=== PATIENT | female | born 1985 | race American Indian/Alaskan Native ===

== ENCOUNTER 2017-07-13 20:24 | Emergency (ER) | payer MEDICAID ==
--- NOTE | 2017-07-14 03:40 | Emergency Department Report ---
Pediatric URI - HPI Chief Complaint: Upper Respiratory Infection Stated Complaint: COLD SX Time Seen by Provider: 07/14/17 01:07 Duration: Today Pain Location: Nose (patient has chills and mom reports it seems like she) Symptoms: Yes Rhinorrhea (nasal congestion), Yes Sick Contacts, Yes Able to Tolerate Fluids, Yes Good Urine Output, No Sore Throat, No Ear Pain, No Cough, No Listless Behavior Other History: Patient to the emergency room reports that she is having an nasal congestion and it feels like she can't breathe out of her nose sometimes. This has been ongoing and for couple days and no [id number] medication taken. Denies any cough, sore throat, nausea vomiting or diarrhea. Pain around nose is 8 out of 10. Denies any abdominal pain. Last menstrual period was 07/05/2017. Patient was born with mild retardation so she is here with her mom was also reporting. Patient is able to converse state and answer questions appropriately. Immunizations up-to-date. ED Review of Systems ROS: Stated complaint: COLD SX Other details as noted in HPI Comment: All other systems reviewed and negative Constitutional: chills Eyes: denies: eye pain, eye discharge ENT: congestion. denies: ear pain, throat pain Respiratory: no symptoms reported Cardiovascular: denies: chest pain, palpitations, dyspnea on exertion, edema, syncope, paroxysmal nocturnal dyspnea Gastrointestinal: denies: abdominal pain, nausea, vomiting, diarrhea, constipation, hematemesis, melena, hematochezia Musculoskeletal: denies: back pain, joint swelling, arthralgia, myalgia Skin: denies: rash Neurological: denies: headache, weakness, numbness, paresthesias, confusion, abnormal gait, vertigo Pediatric Past Medical History - -related Complications -related Complications?: no complications - -related Complications -related complications?: None - Childhood Illnesses Childhood Disease?: None - Chronic Health Problems Additional medical history: anemia. Patient with mild mental retardation - Immunizations Immunizations Up to Date: Yes - Family History Hx Family Asthma: No Hx Family Sickle Cell Disease: No Other Family History: No - School Status Pediatric School Status: School - Guardian Patient lives with:: mother ED Peds URI Exam - Exam General: Vital signs noted. No distress. Alert and acting appropriately. This is a 32-year-old female well-nourished well-developed in no acute distress HEENT: Yes Moist Mucous Membranes, Yes Rhinorrhea (nasal mucosa pale and boggy with clear drainage), No Pharyngeal Erythema, No Pharyngeal Exudates, No Conjuctival Injection, No Frontal Tenderness, No Maxillary Tenderness Ear: Both TM Bulge (TM congested without erythema), Neither TM Erythema, Neither EAC Pain, Neither EAC Discharge, Neither Cerumen Impaction Neck: Yes Supple, No Adenopathy Lungs: Yes Good Air Exchange, No Wheezes, No Ronchi, No Stridor, No Cough, No Labored Respirations, No Retractions, No Use of Accessory Muscles, No Other Abnormal Lung Sounds Heart: Yes Regular, No Murmur Abdomen: Yes Normal Bowel Sounds, No Tenderness, No Peritoneal Signs Skin: No Rash, No Eczema Neurologic: Alert and oriented, no deficits. Appropriate for patient since she has mild mental retarded Musculoskeletal: Unremarkable. ED Course Vital Signs 07/13/17 21:12 Temperature 98.8 F Pulse Rate 72 Respiratory 18 Rate Blood Pressure 140/85 O2 Sat by Pulse 100 Oximetry - Reevaluation(s) Reevaluation #1: 07/14/17 06:42 Patient stable throughout ED stay ED Medical Decision Making - Medical Decision Making ED course: Patient here reports that she is having nasal congestion with pain. Physical findings were allergic rhinitis and nasal congestion. Patient with pale boggy nasal mucosa with clear drainage and bilateral TM congested. I discussed diagnosis with patient and her mom. Treatment plan was also discussed. I did also discuss with patient and mom that she needs to flush her nostrils out with saline to relieve congestion. Patient discharged home with her mom in stable condition with prescription for Flonase and Zyrtec Patient to follow up with her doctor as her mom says she does have a doctor in 3-5 days. Critical care attestation.: If time is entered above; I have spent that time in minutes in the direct care of this critically ill patient, excluding procedure time. ED Disposition Clinical Impression: Nasal congestion with rhinorrhea Allergic rhinitis Qualifiers: Chronicity: unspecified Allergic rhinitis trigger: unspecified Allergic rhinitis seasonality: unspecified seasonality Qualified Code(s): J30.9 - Allergic rhinitis, unspecified Disposition: - TO HOME OR SELFCARE Is pt being admited?: No Does the pt Need Aspirin: No Condition: Stable Instructions: Allergic Rhinitis (ED), Cold Symptoms (ED) Additional Instructions: Please increase her fluid intake Flush nostrils with saline nasal spray As discussed, take Zyrtec and Flonase F/U with primary care physician as instructed Prescriptions: Cetirizine HCl [ZyrTEC] 10 mg PO QDAY 14 Days #14 capsule Fluticasone [Flonase] 1 spray NS QDAY 14 Days #1 bottle Referrals: PRIMARY CARE, [Primary Care Provider] - 3-5 Days Forms: Accompanied Note, Work/School Release Form(ED)
[2017-07-14 07:22] VITALS: BP 132/87
== END 2017-07-14 07:22 | disposition home or self-care (01) ==
LOC: ED 20:24
DX: J30.9 Allergic rhinitis, unspecified (principal)
CPT/HCPCS: 99282